=== PATIENT | female | born 1980 | race Caucasian/White ===

== ENCOUNTER 2017-06-12 20:57 | Inpatient (IN) | payer MEDICAID ==
[~2017-06-12] VITALS: Ht 170.2 cm; Wt 97.6 kg
[2017-06-12] MEDS ORDERED: METF500T4 (21:11)
[2017-06-12] MEDS ORDERED: ondansetron/PF 4mg/2ml inj IV ONE (21:15)
[2017-06-12] MEDS ORDERED: HYDROmorphone 1 mg/ml syringe IV PRN (21:15)
[2017-06-12] MEDS ORDERED: normal saline 1000ML IV soln IVB ONE (21:15)
[2017-06-12 21:47] LABS: BASOPHILS % (AUTO) 0.5 % (0-1); EOSINOPHILS # (AUTO) 0.1 X10'3 (0-0.9); EOSINOPHILS % (AUTO) 1.7 % (0-6); HEMATOCRIT 43.4 % (35.0-45.0); HEMOGLOBIN 14.5 g/dl (12.0-16.0); LYMPHOCYTES # (AUTO) 2.3 X10'3 (1.1-4.8); LYMPHOCYTES % (AUTO) 31.6 % (21-51); MEAN CORPUSCULAR HEMOGLOBIN 29.9 PG (27.0-31.0); MEAN CORPUSCULAR HGB CONC 33.4 % (33.0-36.5); MEAN CORPUSCULAR VOLUME 89.6 FL (78-98); MEAN PLATELET VOLUME 10.1 FL (7.4-10.4); MONOCYTES # (AUTO) 0.5 X10'3 (0-0.9); MONOCYTES % (AUTO) 6.5 % (2-12); NEUTROPHILS # (AUTO) 4.4 X10'3 (1.8-7.7); NEUTROPHILS % (AUTO) 59.7 % (42-75); PLATELET COUNT 282 X10'3 (140-440); RED BLOOD COUNT 4.84 X10'6 (4.20-5.60); RED CELL DISTRIBUTION WIDTH 15.1 % (11.5-14.5); WHITE BLOOD COUNT 7.4 X10'3 (4.5-11.0)
[2017-06-12 22:02] LABS: CLARITY,URINE CLEAR (Clear); COLOR,URINE YELLOW (Yellow); GLUCOSE, URINE NEGATIVE (Neg); KETONES,URINE NEGATIVE (Neg); LEUKOCYTE ESTERASE ,URINE NEGATIVE (Neg); NITRITES, URINE NEGATIVE (Neg); OCCULT BLOOD,URINE TRACE-INTACT (Neg); PROTEIN,URINE NEGATIVE (Neg); UROBILINOGEN,URINE 0.2 E.U/dL (0.2-1.0)
[2017-06-12 22:06] LABS: ALANINE AMINOTRANSFERASE 237 U/L (12-78); ALBUMIN 3.9 G/DL (3.4-5.0); ALKALINE PHOSPHATASE 291 IU/L (46-116); ANION GAP 10 (8-16); ASPARTATE AMINO TRANSFERASE 199 U/L (10-37); BILIRUBIN,TOTAL 2.8 MG/DL (0.1-1.0); BLOOD UREA NITROGEN 4 MG/DL (7-18); CALCIUM 9.8 MG/DL (8.5-10.1); CHLORIDE 106 MMOL/L (99-107); GLUCOSE 138 MG/DL (70-104); LIPASE 135 U/L (73-393); POTASSIUM 3.6 MMOL/L (3.5-5.1); SODIUM 145 MMOL/L (135-145); TOTAL PROTEIN 7.7 G/DL (6.4-8.2); eGFR > 90 ML/MIN
[2017-06-12 22:17] LABS: HCG SERUM QL NEGATIVE
[2017-06-12 22:18] LABS: UA COLLECTION TYPE CLN CATCH MIDSTREAM
[2017-06-12 22:19] LABS: BACTERIA,URINE FEW /HPF (Neg); RBC,URINE 0-2 /HPF (0-2); SQUAMOUS EPITHELIAL CELL,UR FEW /LPF (FEW); WBC,URINE 0-4 /HPF (0-4)
[2017-06-13] MEDS ORDERED: HYDROmorphone 1 mg/ml syringe IV PRN (01:00)
[2017-06-13] MEDS ORDERED: mag hydrox/Alum hydrox/simeth 30ml oral suspension PO PRN (01:00)
[2017-06-13] MEDS ORDERED: ondansetron/PF 4mg/2ml inj IV PRN (01:00)
[2017-06-13] MEDS ORDERED: magnesium Cl slow-release 64mg tablet PO PRN (01:00)
[2017-06-13] MEDS ORDERED: magnesium 2GM in 50ml NS 50 ML IV PRN (01:00)
[2017-06-13] MEDS ORDERED: potassium Cl 20 mEq SR tablet PO PRN ×2 (01:00)
[2017-06-13] MEDS ORDERED: acetaminophen 325mg tablet PO PRN (01:00)
[2017-06-13] MEDS ORDERED: magnesium hydroxide 30ml (MOM) UD suspension PO PRN (01:00)
[2017-06-13] MEDS ORDERED: potassium Cl 40MEQ/NS 500ml 500 ML IV PRN ×2 (01:00)
[2017-06-13] MEDS ORDERED: magnesium 4gm in 100ml NS 100 ML IV PRN (01:00)
[2017-06-13 01:30] LABS: HEMOGLOBIN A1C 6.3 % (4.5-6.2)
[2017-06-13] MEDS: normal saline 1000ml 1,000 ML IV SCH ×4 (02:13→23:59)
[2017-06-13 03:30] VITALS: BP 104/65
[2017-06-13 08:00] VITALS: BP 109/67
[2017-06-13] MEDS: K and/or MAG REPLACEMENT MC SCH (08:00)
[2017-06-13] MEDS: HYDROmorphone 1 mg/ml syringe IV PRN (09:47)
[2017-06-13 11:37] VITALS: BP 114/67
[2017-06-13 18:30] VITALS: BP 113/70
[2017-06-13] MEDS ORDERED: HYDROmorphone inj. 0.5 MG/0.5 ML DISP.SYRIN ONE (19:24)
[2017-06-13] MEDS ORDERED: temazepam 15mg capsule PO PRN (21:00)
[2017-06-14] VITALS: BP 109/67
[2017-06-14 05:38] LABS: BASOPHILS % (AUTO) 0.4 % (0-1); EOSINOPHILS # (AUTO) 0.1 X10'3 (0-0.9); HEMATOCRIT 38.5 % (35.0-45.0); HEMOGLOBIN 12.9 g/dl (12.0-16.0); LYMPHOCYTES # (AUTO) 1.5 X10'3 (1.1-4.8); LYMPHOCYTES % (AUTO) 22.9 % (21-51); MEAN CORPUSCULAR HGB CONC 33.5 % (33.0-36.5); MEAN CORPUSCULAR VOLUME 89.6 FL (78-98); MEAN PLATELET VOLUME 10.5 FL (7.4-10.4); MONOCYTES # (AUTO) 0.3 X10'3 (0-0.9); MONOCYTES % (AUTO) 5.4 % (2-12); NEUTROPHILS # (AUTO) 4.4 X10'3 (1.8-7.7); NEUTROPHILS % (AUTO) 69.3 % (42-75); PLATELET COUNT 213 X10'3 (140-440); WHITE BLOOD COUNT 6.4 X10'3 (4.5-11.0)
[2017-06-14 06:01] LABS: ALANINE AMINOTRANSFERASE 133 U/L (12-78); ALBUMIN 3.1 G/DL (3.4-5.0); ALBUMIN/GLOBULIN RATIO 0.9 (1.1-1.5); ALKALINE PHOSPHATASE 224 IU/L (46-116); ANION GAP 12 (8-16); ASPARTATE AMINO TRANSFERASE 62 U/L (10-37); BILIRUBIN,TOTAL 1.1 MG/DL (0.1-1.0); BLOOD UREA NITROGEN 6 MG/DL (7-18); CALCIUM 8.5 MG/DL (8.5-10.1); CHLORIDE 108 MMOL/L (99-107); GLUCOSE 125 MG/DL (70-104); MAGNESIUM 1.5 MG/DL (1.5-2.4); POTASSIUM 3.7 MMOL/L (3.5-5.1); SODIUM 143 MMOL/L (135-145); TOTAL CARBON DIOXIDE 22.8 MMOL/L (24-32); TOTAL PROTEIN 6.4 G/DL (6.4-8.2); eGFR > 90 ML/MIN
[2017-06-14] MEDS: K and/or MAG REPLACEMENT MC SCH (06:57)
[2017-06-14] MEDS ORDERED: HYDROmorphone inj. 0.5 MG/0.5 ML DISP.SYRIN ONE ×2 (07:07→16:21)
[2017-06-14] MEDS ORDERED: FLU VACC QS2017-18 36MOS UP/PF 60 MCG/0.5 ML SYRINGE IMVAC ONE (10:00)
[2017-06-14 11:35] VITALS: BP 106/64
[2017-06-14] MEDS: normal saline 1000ml 1,000 ML IV SCH (16:59)
[2017-06-14 18:00] VITALS: BP 110/66
[2017-06-14 23:00] VITALS: BP 109/68
[2017-06-15] VITALS (11 sets, daily range): BP systolic 101–138; BP diastolic 62–87
[2017-06-15] MEDS: normal saline 1000ml 1,000 ML IV SCH ×3 (03:32→22:59)
[2017-06-15 05:25] LABS: BASOPHILS % (AUTO) 0.4 % (0-1); EOSINOPHILS # (AUTO) 0.1 X10'3 (0-0.9); EOSINOPHILS % (AUTO) 2.6 % (0-6); HEMATOCRIT 37.3 % (35.0-45.0); HEMOGLOBIN 12.5 g/dl (12.0-16.0); LYMPHOCYTES % (AUTO) 39.2 % (21-51); MEAN CORPUSCULAR HGB CONC 33.6 % (33.0-36.5); MEAN CORPUSCULAR VOLUME 89.4 FL (78-98); MEAN PLATELET VOLUME 10.4 FL (7.4-10.4); MONOCYTES # (AUTO) 0.4 X10'3 (0-0.9); MONOCYTES % (AUTO) 7.2 % (2-12); NEUTROPHILS # (AUTO) 2.6 X10'3 (1.8-7.7); NEUTROPHILS % (AUTO) 50.6 % (42-75); PLATELET COUNT 230 X10'3 (140-440); RED BLOOD COUNT 4.18 X10'6 (4.20-5.60); RED CELL DISTRIBUTION WIDTH 14.6 % (11.5-14.5); WHITE BLOOD COUNT 5.2 X10'3 (4.5-11.0)
[2017-06-15 05:49] LABS: ALANINE AMINOTRANSFERASE 102 U/L (12-78); ALBUMIN/GLOBULIN RATIO 0.9 (1.1-1.5); ALKALINE PHOSPHATASE 211 IU/L (46-116); ANION GAP 11 (8-16); ASPARTATE AMINO TRANSFERASE 50 U/L (10-37); BLOOD UREA NITROGEN 4 MG/DL (7-18); BUN/CREATININE RATIO 6.7 (6.6-38.0); CALCIUM 8.8 MG/DL (8.5-10.1); CHLORIDE 109 MMOL/L (99-107); GLUCOSE 111 MG/DL (70-104); MAGNESIUM 1.6 MG/DL (1.5-2.4); POTASSIUM 3.7 MMOL/L (3.5-5.1); SODIUM 144 MMOL/L (135-145); TOTAL CARBON DIOXIDE 24.5 MMOL/L (24-32); TOTAL PROTEIN 6.2 G/DL (6.4-8.2); eGFR > 90 ML/MIN
[2017-06-15 06:16] LABS: LARGE PLATELETS FEW; PLATELET ESTIMATE NORMAL
[2017-06-15] MEDS: K and/or MAG REPLACEMENT MC SCH (08:00)
[2017-06-15] MEDS ORDERED: normal saline 1000ml 1,000 ML IV SCH (13:13)
[2017-06-15] MEDS ORDERED: fentaNYL/PF 50MCG/1 ML 2ML syringe IV PRN ×2 (13:15→14:10)
[2017-06-15] MEDS ORDERED: meperidine/PF 100mg/ml syringe IV PRN (13:15)
[2017-06-15] MEDS ORDERED: LIDOcaine Viscous 15ml cup PO ONE (13:15)
[2017-06-15] MEDS ORDERED: glucagon, human recombinant 1mg kit IV PRN (13:15)
[2017-06-15] MEDS ORDERED: simethicone 40mg/0.6ml oral drops 30ml MC ONE (13:15)
[2017-06-15] MEDS ORDERED: iohexol 300 MG/1 ML 50ml polymer IV ONE (13:15)
[2017-06-15] MEDS ORDERED: diphenhydrAMINE 50 mg/ml inj IV ONE (13:15)
[2017-06-15] MEDS ORDERED: MIDAZolam 5mg/5ml vial IV PRN ×2 (13:15→14:10)
[2017-06-15] MEDS ORDERED: ringers solution, lacted 1,000 ML IV ONE (13:15)
[2017-06-15] MEDS ORDERED: levoFLOXACIN-Levaquin 500mg/D5 100 ML IV ONE (14:10)
[2017-06-15] MEDS ORDERED: diphenhydrAMINE 50 mg/ml inj ONE (14:47)
[2017-06-15] MEDS ORDERED: meperidine/PF 100mg/ml syringe ONE (14:47)
[2017-06-15] MEDS ORDERED: fentaNYL/PF 50MCG/1 ML 2ML syringe ONE (14:47)
[2017-06-15] MEDS ORDERED: MIDAZolam 1mg/ml 10ml vial ONE (14:47)
[2017-06-15] MEDS ORDERED: glucagon, human recombinant 1mg kit ONE (14:48)
[2017-06-15] MEDS ORDERED: levoFLOXACIN-Levaquin 500mg/D5 0 ML IV ONE (14:48)
[2017-06-15] MEDS ORDERED: iohexol 300 MG/1 ML 50ml polymer ONE (14:48)
[2017-06-15] MEDS ORDERED: LIDOcaine Viscous 15ml cup ONE ×2 (14:48→17:48)
[2017-06-16] VITALS (20 sets, daily range): BP systolic 67–124; BP diastolic 49–84
[2017-06-16 05:38] LABS: BASOPHILS % (AUTO) 0.5 % (0-1); EOSINOPHILS # (AUTO) 0.1 X10'3 (0-0.9); EOSINOPHILS % (AUTO) 2.4 % (0-6); HEMOGLOBIN 12.4 g/dl (12.0-16.0); LYMPHOCYTES # (AUTO) 1.8 X10'3 (1.1-4.8); MEAN CORPUSCULAR HGB CONC 33.4 % (33.0-36.5); MEAN CORPUSCULAR VOLUME 89.7 FL (78-98); MEAN PLATELET VOLUME 10.4 FL (7.4-10.4); MONOCYTES # (AUTO) 0.5 X10'3 (0-0.9); MONOCYTES % (AUTO) 9.7 % (2-12); NEUTROPHILS # (AUTO) 2.6 X10'3 (1.8-7.7); NEUTROPHILS % (AUTO) 51.4 % (42-75); PLATELET COUNT 215 X10'3 (140-440); RED BLOOD COUNT 4.13 X10'6 (4.20-5.60); RED CELL DISTRIBUTION WIDTH 14.3 % (11.5-14.5)
[2017-06-16 06:14] LABS: ALANINE AMINOTRANSFERASE 87 U/L (12-78); ALBUMIN 2.9 G/DL (3.4-5.0); ALKALINE PHOSPHATASE 248 IU/L (46-116); ANION GAP 8 (8-16); ASPARTATE AMINO TRANSFERASE 75 U/L (10-37); BILIRUBIN,TOTAL 1.2 MG/DL (0.1-1.0); BLOOD UREA NITROGEN 4 MG/DL (7-18); BUN/CREATININE RATIO 6.7 (6.6-38.0); CALCIUM 8.5 MG/DL (8.5-10.1); CHLORIDE 110 MMOL/L (99-107); GLUCOSE 104 MG/DL (70-104); MAGNESIUM 1.6 MG/DL (1.5-2.4); POTASSIUM 3.5 MMOL/L (3.5-5.1); SODIUM 145 MMOL/L (135-145); TOTAL PROTEIN 5.9 G/DL (6.4-8.2); eGFR > 90 ML/MIN
[2017-06-16] MEDS: K and/or MAG REPLACEMENT MC SCH (07:47)
[2017-06-16 09:10] LABS: PARTIAL THROMBOPLASTIN TIME 26 SECONDS (22-32)
[2017-06-16] MEDS: normal saline 1000ml 1,000 ML IV SCH ×2 (09:12→17:29)
[2017-06-16] MEDS ORDERED: ceFOXitin 2 GM ADDvantage bag 100 ML IV ONE (14:05)
[2017-06-16] MEDS ORDERED: ceFAZolin 1000mg inj ONE (14:13)
[2017-06-16] MEDS ORDERED: BUPIVAcaine/PF 2.5 mg/ml (0.25%) 30ml vial ONE (14:14)
[2017-06-16] MEDS ORDERED: sevoflurane 250ml liquid IH ONE (14:42)
[2017-06-16] MEDS ORDERED: midazolam 2 mg/2 ml injection ONE (14:52)
[2017-06-16] MEDS ORDERED: propofol inj 20 ML IV ONE (14:52)
[2017-06-16] MEDS ORDERED: ondansetron/PF 4mg/2ml inj ONE (14:52)
[2017-06-16] MEDS ORDERED: LIDOcaine 2% (20mg/ml) 5ml vial ONE (14:52)
[2017-06-16] MEDS ORDERED: fentaNYL/PF 50MCG/1 ML 2ML syringe ONE (14:52)
[2017-06-16] MEDS ORDERED: rocuronium 10mg/ml inj IV ONE ×2 (14:52→15:39)
[2017-06-16] MEDS ORDERED: glycopyrrolate 0.2mg/ml inj ONE (14:53)
[2017-06-16] MEDS ORDERED: neostigmine methylsulfate 1 MG/ML 10ml vial ONE (14:53)
[2017-06-16] MEDS ORDERED: ringers solution, lacted 1,000 ML IV SCH (15:16)
[2017-06-16] MEDS ORDERED: hydrALAZINE 20mg/ml inj. IV PRN (15:20)
[2017-06-16] MEDS ORDERED: labetalol 5mg/ml 20ml inj. IV PRN (15:20)
[2017-06-16] MEDS ORDERED: ondansetron/PF 4mg/2ml inj IV PRN ×2 (15:20→16:00)
[2017-06-16] MEDS ORDERED: morphine 2 MG/ML inj. syringe IV PRN ×2 (15:20)
[2017-06-16] MEDS ORDERED: fentaNYL/PF 50MCG/1 ML 2ML syringe IV PRN (15:20)
[2017-06-16] MEDS ORDERED: labetalol 5mg/ml 20ml inj. IV ONE (15:50)
[2017-06-16] MEDS ORDERED: ketorolac trometh. 30mg/ml inj. ONE (15:51)
[2017-06-16] MEDS: fentaNYL/PF 50MCG/1 ML 2ML syringe IV PRN ×4 (16:13→16:49)
[2017-06-16] MEDS ORDERED: normal saline 1000ml 1,000 ML IV ONE (18:30)
[2017-06-16] MEDS: ketorolac trometh. 30mg/ml inj. IV PRN (19:15)
[2017-06-16] MEDS ORDERED: naloxone 0.4 mg/ml inj ONE (20:47)
[2017-06-16] MEDS ORDERED: naloxone 0.4 mg/ml inj IV ONE (20:50)
[2017-06-16 20:58] LABS: BASOPHILS % (AUTO) 0.1 % (0-1); EOSINOPHILS # (AUTO) 0.1 X10'3 (0-0.9); HEMATOCRIT 27.3 % (35.0-45.0); HEMOGLOBIN 9.4 g/dl (12.0-16.0); LYMPHOCYTES # (AUTO) 0.9 X10'3 (1.1-4.8); LYMPHOCYTES % (AUTO) 6.6 % (21-51); MEAN CORPUSCULAR HEMOGLOBIN 30.5 PG (27.0-31.0); MEAN CORPUSCULAR HGB CONC 34.5 % (33.0-36.5); MEAN CORPUSCULAR VOLUME 88.3 FL (78-98); MEAN PLATELET VOLUME 9.7 FL (7.4-10.4); MONOCYTES # (AUTO) 0.1 X10'3 (0-0.9); MONOCYTES % (AUTO) 0.7 % (2-12); NEUTROPHILS # (AUTO) 12.7 X10'3 (1.8-7.7); NEUTROPHILS % (AUTO) 91.6 % (42-75); PLATELET COUNT 273 X10'3 (140-440); RED CELL DISTRIBUTION WIDTH 14.5 % (11.5-14.5); WHITE BLOOD COUNT 13.9 X10'3 (4.5-11.0)
[2017-06-16 21:11] LABS: ALBUMIN 2.4 G/DL (3.4-5.0); ANION GAP 11 (8-16); BLOOD UREA NITROGEN 8 MG/DL (7-18); BUN/CREATININE RATIO 11.4 (6.6-38.0); CALCIUM 7.7 MG/DL (8.5-10.1); CHLORIDE 112 MMOL/L (99-107); GLUCOSE 216 MG/DL (70-104); MAGNESIUM 1.2 MG/DL (1.5-2.4); PHOSPHORUS 4.4 MG/DL (2.3-4.5); POTASSIUM 3.9 MMOL/L (3.5-5.1); SODIUM 145 MMOL/L (135-145); TOTAL CARBON DIOXIDE 21.6 MMOL/L (24-32); eGFR > 90 ML/MIN
[2017-06-16] MEDS ORDERED: albumin (Human) 5% 250 ML IV solution IV STA (21:16)
[2017-06-16 21:36] LABS: ABG BASE EXCESS -7.1 mmol/L (-2.0-3.0); ABG OXYGEN SATURATION 95.5 % (95-98); ABG PCO2 (T) 28.8 mmHg (32.0-45.0); ABG PH (T) 7.388 (7.350-7.450); ABG PO2 (T) 80.1 mmHg (83-108); FCOHb 0.3 % (0.5-1.5); FLOW 2 L/min; FMetHb 0.1 % (0.3-1.12); FO2Hb 95.1 % (94-100); PATIENT TEMPERATURE 36.6; RESPIRATORY RATE (OBSERVED) 18 b/min; TOTAL HEMOGLOBIN 9.7 G/dl (12.0-16.0)
[2017-06-17] VITALS (26 sets, daily range): BP systolic 99–113; BP diastolic 50–64
[2017-06-17] MEDS: ketorolac trometh. 30mg/ml inj. IV PRN (01:08)
[2017-06-17 02:21] LABS: BASOPHILS % (AUTO) 0.2 % (0-1); EOSINOPHILS % (AUTO) 0 % (0-6); HEMATOCRIT 23.5 % (35.0-45.0); HEMOGLOBIN 8.2 g/dl (12.0-16.0); LYMPHOCYTES # (AUTO) 0.6 X10'3 (1.1-4.8); LYMPHOCYTES % (AUTO) 6.1 % (21-51); MEAN CORPUSCULAR HEMOGLOBIN 30.6 PG (27.0-31.0); MEAN CORPUSCULAR HGB CONC 34.8 % (33.0-36.5); MEAN CORPUSCULAR VOLUME 87.8 FL (78-98); MEAN PLATELET VOLUME 9.9 FL (7.4-10.4); MONOCYTES # (AUTO) 0.3 X10'3 (0-0.9); MONOCYTES % (AUTO) 3.2 % (2-12); NEUTROPHILS # (AUTO) 9.2 X10'3 (1.8-7.7); NEUTROPHILS % (AUTO) 90.5 % (42-75); PLATELET COUNT 238 X10'3 (140-440); RED BLOOD COUNT 2.67 X10'6 (4.20-5.60); RED CELL DISTRIBUTION WIDTH 14.8 % (11.5-14.5); WHITE BLOOD COUNT 10.2 X10'3 (4.5-11.0)
[2017-06-17] MEDS ORDERED: midazolam 2 mg/2 ml injection ONE (02:23)
[2017-06-17] MEDS ORDERED: fentaNYL/PF 50MCG/1 ML 2ML syringe ONE ×3 (02:23→03:58)
[2017-06-17] MEDS ORDERED: clindamycin phosphate 150mg/ml inj. ONE (02:25)
[2017-06-17] MEDS ORDERED: gentamicin 40 MG/1 ML inj ONE (02:25)
[2017-06-17] MEDS ORDERED: LIDOcaine 2% (20mg/ml) 5ml vial ONE (02:26)
[2017-06-17] MEDS ORDERED: etomidate 2mg/ml inj. ONE (02:26)
[2017-06-17] MEDS ORDERED: phenylephrine 10mg/ml inj IV ONE (02:33)
[2017-06-17] MEDS ORDERED: sevoflurane 250ml liquid IH ONE (02:46)
[2017-06-17] MEDS ORDERED: insulin regular, human vial - multi-dose ONE (02:47)
[2017-06-17] MEDS ORDERED: BUPIVAcaine/PF 2.5 mg/ml (0.25%) 30ml vial ONE (03:04)
[2017-06-17] MEDS ORDERED: ringers solution, lacted 1,000 ML IV SCH (04:34)
[2017-06-17] MEDS ORDERED: proCHLORperazine 10 MG/2 ml inj IV PRN (04:35)
[2017-06-17] MEDS ORDERED: morphine 2 MG/ML inj. syringe IV PRN ×2 (04:35)
[2017-06-17] MEDS ORDERED: meperidine/PF 25mg/ml syringe IV PRN ×3 (04:35)
[2017-06-17] MEDS ORDERED: ondansetron/PF 4mg/2ml inj IV PRN (04:35)
[2017-06-17 04:41] LABS: ISTAT ANION GAP 17 (8-12); ISTAT BUN 6 mg/dL (6-19); ISTAT CL 108 mmol/L (99-107); ISTAT CREATININE 0.5 mg/dL (0.6-1.1); ISTAT GLUCOSE 152 mg/dL (70-104); ISTAT HGB 7.1 g/dl (12.0-16.0); ISTAT Hct 21 %PCV (35-48); ISTAT IONIZED CALCIUM 1.17 mmol/L (1.03-1.32); ISTAT K 3.5 mmol/L (3.5-5.1); ISTAT NA 144 mmol/L (135-145); ISTAT TOTAL CO2 19 mmol/L (24-32); ISTAT eGFR > 90 ML/MIN
[2017-06-17] MEDS ORDERED: ceFOXitin 1000 MG inj ONE (04:43)
[2017-06-17] MEDS: normal saline 1000ml 1,000 ML IV SCH ×2 (07:31→07:37)
[2017-06-17] MEDS ORDERED: HYDROmorphone inj. 0.5 MG/0.5 ML DISP.SYRIN ONE ×3 (07:33→18:44)
[2017-06-17] MEDS: ceFOXitin 2 GM ADDvantage bag 100 ML IV SCH ×3 (07:37→20:15)
[2017-06-17] MEDS: metoclopramide 5 mg/ml inj IV SCH ×3 (07:37→20:15)
[2017-06-17] MEDS: K and/or MAG REPLACEMENT MC SCH (08:00)
[2017-06-17 13:58] LABS: HEMATOCRIT 27.9 % (35.0-45.0); HEMOGLOBIN 9.9 g/dl (12.0-16.0); MEAN CORPUSCULAR HGB CONC 35.3 % (33.0-36.5); MEAN PLATELET VOLUME 10.1 FL (7.4-10.4); PLATELET COUNT 245 X10'3 (140-440); RED BLOOD COUNT 3.18 X10'6 (4.20-5.60); RED CELL DISTRIBUTION WIDTH 14.8 % (11.5-14.5); WHITE BLOOD COUNT 11.4 X10'3 (4.5-11.0)
[2017-06-17] MEDS: HYDROmorphone 1 mg/ml syringe IV PRN (18:46)
[2017-06-17] MEDS: HYDROcodone/acetaminophen 10/325mg tab PO PRN (20:51)
[2017-06-18] MEDS: morphine 2 MG/ML inj. syringe IV PRN ×5 (01:00→19:56)
[2017-06-18] MEDS: metoclopramide 5 mg/ml inj IV SCH ×4 (02:46→19:52)
[2017-06-18] MEDS: HYDROcodone/acetaminophen 10/325mg tab PO PRN ×3 (02:46→17:49)
[2017-06-18] MEDS: normal saline 1000ml 1,000 ML IV SCH ×3 (02:46→20:13)
[2017-06-18 06:05] LABS: BASOPHILS % (AUTO) 0.3 % (0-1); EOSINOPHILS # (AUTO) 0.1 X10'3 (0-0.9); EOSINOPHILS % (AUTO) 1.2 % (0-6); HEMATOCRIT 22.5 % (35.0-45.0); HEMOGLOBIN 7.9 g/dl (12.0-16.0); LYMPHOCYTES # (AUTO) 2.2 X10'3 (1.1-4.8); LYMPHOCYTES % (AUTO) 33.8 % (21-51); MEAN CORPUSCULAR HEMOGLOBIN 30.9 PG (27.0-31.0); MEAN CORPUSCULAR HGB CONC 34.9 % (33.0-36.5); MEAN CORPUSCULAR VOLUME 88.6 FL (78-98); MEAN PLATELET VOLUME 10.2 FL (7.4-10.4); MONOCYTES # (AUTO) 0.5 X10'3 (0-0.9); MONOCYTES % (AUTO) 6.9 % (2-12); NEUTROPHILS # (AUTO) 3.8 X10'3 (1.8-7.7); NEUTROPHILS % (AUTO) 57.8 % (42-75); PLATELET COUNT 159 X10'3 (140-440); RED BLOOD COUNT 2.54 X10'6 (4.20-5.60); RED CELL DISTRIBUTION WIDTH 15.5 % (11.5-14.5); WHITE BLOOD COUNT 6.6 X10'3 (4.5-11.0)
[2017-06-18 06:31] LABS: ALANINE AMINOTRANSFERASE 39 U/L (12-78); ALBUMIN 2.6 G/DL (3.4-5.0); ALBUMIN/GLOBULIN RATIO 1.1 (1.1-1.5); ALKALINE PHOSPHATASE 108 IU/L (46-116); ANION GAP 7 (8-16); ASPARTATE AMINO TRANSFERASE 23 U/L (10-37); BILIRUBIN,TOTAL 0.7 MG/DL (0.1-1.0); BLOOD UREA NITROGEN 5 MG/DL (7-18); CALCIUM 7.9 MG/DL (8.5-10.1); CHLORIDE 113 MMOL/L (99-107); GLUCOSE 113 MG/DL (70-104); MAGNESIUM 1.4 MG/DL (1.5-2.4); SODIUM 145 MMOL/L (135-145); TOTAL CARBON DIOXIDE 24.8 MMOL/L (24-32); TOTAL PROTEIN 4.9 G/DL (6.4-8.2); eGFR > 90 ML/MIN
[2017-06-18 07:04] LABS: POTASSIUM 2.8 MMOL/L (3.5-5.1)
[2017-06-18] MEDS: LACTOBACILLUS RHAMNOSUS GG 15 billion unit sprinkle caps PO SCH (07:08)
[2017-06-18] MEDS ORDERED: potassium Cl 20 mEq SR tablet PO PRN ×2 (07:25)
[2017-06-18] MEDS ORDERED: magnesium 2GM in 50ml NS 50 ML IV PRN (07:25)
[2017-06-18] MEDS ORDERED: potassium Cl 40MEQ/NS 500ml 500 ML IV PRN ×2 (07:25)
[2017-06-18] MEDS ORDERED: magnesium 4gm in 100ml NS 100 ML IV PRN (07:25)
[2017-06-18 07:35] VITALS: BP 128/82
[2017-06-18] MEDS: K and/or MAG REPLACEMENT MC SCH ×2 (08:00)
[2017-06-18] MEDS: LIDOcaine 1% 30ml vial 5 ML in potassium Cl 40MEQ/NS 500ml 500 ML IV PRN ×2 (09:37→14:29)
[2017-06-18] MEDS: magnesium Cl slow-release 64mg tablet PO PRN ×2 (10:18→21:06)
[2017-06-18 11:51] VITALS: BP 127/73
[2017-06-18 12:40] VITALS: BP 121/72
[2017-06-18 12:55] VITALS: BP 125/72
[2017-06-18] MEDS ORDERED: levoFLOXACIN-Levaquin 500mg/D5 100 ML IV SCH ×2 (13:10→20:00)
[2017-06-18] MEDS ORDERED: metroNIDAZOLE-Flagyl 500mg/NS 100 ML IV SCH (13:11)
[2017-06-18 13:40] VITALS: BP 118/69
[2017-06-18] MEDS: metroNIDAZOLE-Flagyl 500mg/NS 100 ML IV SCH (19:51)
[2017-06-18 20:00] VITALS: BP 124/80
[2017-06-19] VITALS: BP 127/77
[2017-06-19] MEDS: morphine 2 MG/ML inj. syringe IV PRN ×2 (00:17→08:06)
[2017-06-19] MEDS: metoclopramide 5 mg/ml inj IV SCH ×3 (02:00→14:00)
[2017-06-19] MEDS: HYDROcodone/acetaminophen 10/325mg tab PO PRN (04:40)
[2017-06-19 08:00] VITALS: BP 127/78
[2017-06-19] MEDS ORDERED: ferrous sulfate ER tablet 140 MG TABLET.ER PO SCH (08:00)
[2017-06-19] MEDS: K and/or MAG REPLACEMENT MC SCH (08:00)
[2017-06-19] MEDS: LACTOBACILLUS RHAMNOSUS GG 15 billion unit sprinkle caps PO SCH (08:06)
[2017-06-19] MEDS: metroNIDAZOLE-Flagyl 500mg/NS 100 ML IV SCH (08:06)
[2017-06-19 09:27] LABS: BASOPHILS % (AUTO) 0.3 % (0-1); EOSINOPHILS # (AUTO) 0.1 X10'3 (0-0.9); HEMATOCRIT 28.3 % (35.0-45.0); HEMOGLOBIN 9.7 g/dl (12.0-16.0); LYMPHOCYTES # (AUTO) 2.2 X10'3 (1.1-4.8); LYMPHOCYTES % (AUTO) 31.9 % (21-51); MEAN CORPUSCULAR HEMOGLOBIN 31.2 PG (27.0-31.0); MEAN CORPUSCULAR HGB CONC 34.5 % (33.0-36.5); MEAN CORPUSCULAR VOLUME 90.6 FL (78-98); MEAN PLATELET VOLUME 10.9 FL (7.4-10.4); MONOCYTES # (AUTO) 0.4 X10'3 (0-0.9); MONOCYTES % (AUTO) 5.2 % (2-12); NEUTROPHILS # (AUTO) 4.2 X10'3 (1.8-7.7); NEUTROPHILS % (AUTO) 60.6 % (42-75); PLATELET COUNT 203 X10'3 (140-440); RED BLOOD COUNT 3.12 X10'6 (4.20-5.60); RED CELL DISTRIBUTION WIDTH 15.6 % (11.5-14.5)
[2017-06-19 09:42] LABS: LARGE PLATELETS FEW; PLATELET ESTIMATE NORMAL
[2017-06-19] MEDS ORDERED: oxyCODONE/APAP 10/325mg tablet PO PRN (10:20)
[2017-06-19 11:00] VITALS: BP 119/76
[2017-06-19] MEDS ORDERED: OXYC-150 PO (15:25)
[2017-07-07] MEDS ORDERED: BACDS PO (16:28)
== END 2017-06-19 17:40 | disposition home or self-care (01) | DRG 263 ==
LOC: ER 20:58 → ED HOLD 06-13 01:02 → SUR 3N 06-13 03:00 → PACU 06-16 14:22 → SUR 3N 06-16 17:24
PROVIDERS: ADMIT Internal Medicine; ATTEND Family Medicine
PROC: 0FC98ZZ Extirpation of Matter from Common Bile Duct, Via Natural or Artificial Opening Endoscopic (ICD-10-PCS; 2017-06-15)
PROC: 0F798ZZ Dilation of Common Bile Duct, Via Natural or Artificial Opening Endoscopic (ICD-10-PCS; 2017-06-15)
PROC: BF131ZZ Fluoroscopy of Gallbladder and Bile Ducts using Low Osmolar Contrast (ICD-10-PCS; 2017-06-15)
PROC: 0FT44ZZ Resection of Gallbladder, Percutaneous Endoscopic Approach (ICD-10-PCS; principal; 2017-06-16 14:42)
PROC: 0WCG4ZZ Extirpation of Matter from Peritoneal Cavity, Percutaneous Endoscopic Approach (ICD-10-PCS; 2017-06-17)
PROC: 30233N1 Transfusion of Nonautologous Red Blood Cells into Peripheral Vein, Percutaneous Approach (ICD-10-PCS; 2017-06-17)
PROC: 0W3P4ZZ Control Bleeding in Gastrointestinal Tract, Percutaneous Endoscopic Approach (ICD-10-PCS; 2017-06-17)
DX: K80.63 Calculus of gallbladder and bile duct with acute cholecystitis with obstruction (principal); K66.1 Hemoperitoneum; D62 Acute posthemorrhagic anemia; E11.9 Type 2 diabetes mellitus without complications; K91.840 Postprocedural hemorrhage of a digestive system organ or structure following a digestive system procedure; K57.30 Diverticulosis of large intestine without perforation or abscess without bleeding; K82.8 Other specified diseases of gallbladder; F17.210 Nicotine dependence, cigarettes, uncomplicated; Z90.49 Acquired absence of other specified parts of digestive tract; Z79.84 Long term (current) use of oral hypoglycemic drugs; Y83.8 Other surgical procedures as the cause of abnormal reaction of the patient, or of later complication, without mention of misadventure at the time of the procedure; Y92.239 Unspecified place in hospital as the place of occurrence of the external cause
CPT/HCPCS: 36415; 36600; 74150; 74176; 74181; 80047; 80048; 80053; 81001; 82803; 82948; 83036; 83605; 83690; 83735; 84100; 84132; 84703; 85018; 85025; 85027; 85610; 85730; 86885; 86900; 86901; 86920; 87070; 96374; 96375; 99285; A4315; A6212; A6213; A6251; A6449; A7000; G0500; J0690; J0694; J1170; J1200; J1580; J1610; J1815; J1885; J1956; J2001; J2175; J2250; J2270; J2310; J2370; J2405; J2704; J2710; J2765; J3010; J3480; J3490; J7030; J7120; P9016; P9045; Q9967

== ENCOUNTER 2022-06-18 15:03 | Emergency (ER) | payer MEDICAID, OTHER ==
[~2022-06-18] VITALS: Ht 170.2 cm; Wt 90.0 kg
[~2022-06-18 15:03] MED LIST: METF-436; OXYC-150 PO
[2022-06-18 15:10] VITALS: BP 143/81
== END 2022-06-18 16:49 | disposition home or self-care (01) ==
LOC: ER 15:05
DX: G56.22 Lesion of ulnar nerve, left upper limb (principal); M25.522 Pain in left elbow; E11.9 Type 2 diabetes mellitus without complications; F17.200 Nicotine dependence, unspecified, uncomplicated; Z98.890 Other specified postprocedural states; Z72.89 Other problems related to lifestyle; Z79.899 Other long term (current) drug therapy
CPT/HCPCS: 73080; 99283

== ENCOUNTER 2025-05-07 11:17 | Emergency (ER) | payer OTHER ==
[~2025-05-07] VITALS: Ht 170.2 cm; Wt 84.4 kg
[2025-05-07 12:27] VITALS: TEMP 98.1
[2025-05-07 12:28] LABS: URINE HCG NEGATIVE (NEG)
--- NOTE | 2025-05-07 12:29 | Physician Documentation ---
History of Present Illness Chief Complaint: Abdominal Pain Stated Complaint: ABD PAIN Time Seen by MD: 12:26 Primary Medical Doctor: Kim clark HPI This is a 45-year-old female with a history of partial colectomy for diverticulitis. She notes that this was more than five years ago. Since Thursday, she has been having left lower quadrant abdominal pain with nausea. No chills or fever. History of cholecystectomy. Medication Reconciliation Allergies: Coded Allergies: No Known Allergies (Unverified , 06/12/17) Scheduled Oxycodone HCl/Acetaminophen (Percocet 10-325 mg Tablet), 1 TAB PO Q8H Scheduled PRN Ondansetron 8mg ODT (Ondansetron Odt), 1 TAB PO TID PRN for nausea/vomiting Miscellaneous Medications Metformin Hcl (Metformin Hcl), (Reported) Past Medical History Past Medical History: Diverticulitis, Diabetes Past Surgical History: colectomy, other Other Past Surgical History: descending colon removal Alcohol Use: Occasionally Drug Use: none Lives In: Home Review of Systems ROS As stated above in the HPI, otherwise all systems are reviewed and negative. Physical Exam Vital Signs: Temperature: 98.4, Source: Temporal, Heart Rate: 73, Respiratory Rate: 16, BP: 132/74, Pulse Oximetry: 100, Weight: 84.400 Oxygen Flow Rate: 0 Physical Exam General: Alert, no apparent distress. HEENT: PERRL, EOMI, no injection, moist mucous membranes. Neck: Full range of motion. Respiratory: Lungs clear, no respiratory distress. Chest: No accessory muscle use. Cardiovascular: Regular rate and rhythm, no murmurs. Gastrointestinal: Soft,TTP LLQ, nondistended. Bowels sounds present. Extremities: Normal range of motion, no deformity. Neurologic: Oriented x4. Psychiatric: Normal mood and affect. Skin: Normal color, warm and dry. No edema, no ecchymosis. Progress Results/Orders Results/Orders Orders - STARLA TYSON MANAGER OF COMPLIANCE * Iv Access / Saline Lock * (05/07/25 12:27) Vital Signs 05/07/25 11:19 Temp 98.4 Pulse 73 Resp 16 B/P (MAP) 132/74 Pulse Ox 100 O2 Flow Rate 0 Laboratory Tests Test 05/07/25 12:11 05/07/25 12:13 CBC Comment Chemistry Comments Urine Comment EKG/XRAY/CT/US/VASC/MRI CT : Impression [facility] [address], [place] - [address] CAT SCAN Patient: ALFA BAIRD Medical Record: [id number] [facility] : 1980, Age: 45 Sex: Female Location: ER Patient Status: [facility] ER Service Date/Time: 05/07/251320 Ordering Physician: STARLA TYSON MANAGER OF COMPLIANCE Exam: CT ABDOMEN PELVIS EXAM: CT CT ABDOMEN PELVIS W/ IV CONTRAST History: LLQ abd pain COMPARISON: None TECHNIQUE: Multidetector spiral CT of the abdomen and pelvis was performed from lung bases to pubic symphysis. Intravenous contrast was administered during this examination. Portal venous imaging was obtained. Axial, coronal and sagittal multiplanar reformats were performed by the technologist on a separate workstation. Radiation Dose : 1. Abdomen/Pelvis: CTDIvol 24 mGy, DLP 1316 mGy*cm. CONTRAST: Type of contrast: Omnipaque Contrast injected: 100 ml FINDINGS: Lung Bases: No acute or significant lung base finding. Normal heart size. No pleural or pericardial effusion. Liver: The liver is normal in size. No focal lesions. Normal hepatic vascular enhancement. Gallbladder and Biliary Tree: Gallbladder is surgically absent. Spleen: Unremarkable Pancreas: The pancreas is normal in appearance without focal lesions or abnormal enhancement. Adrenal Glands: Unremarkable Kidneys: No hydronephrosis. Bladder: Unremarkable Bowel: The stomach is grossly normal in appearance. Small bowel and colon are normal in caliber and distribution. Normal appendix is visualized in the right lower quadrant without findings of appendicitis. Ascites: Absent Lymphadenopathy: No mesenteric, retroperitoneal or periportal lymphadenopathy. Abdominal Wall and Mesentery: Moderate fat containing ventral hernia in the upper abdomen. Vasculature: The visualized abdominal aorta is normal in size and caliber. Abdominal and pelvic vessels demonstrate normal enhancement. Pelvic Organs: Unremarkable Musculoskeletal: No aggressive focal bony lesions, acute fractures or dislocation. IMPRESSION: 1. No acute abdominal or pelvic finding. Radiation optimization: All CT scans at this facility use at least one of these dose optimization techniques: automated exposure control mA and/or kV adjustment per patient size (includes targeted exams where dose is matched to clinical indication) or iterative reconstruction. Electronically Signed by:SHAYY MERAZ MD Date & Time: 05/07/251333 Dictated by: SHAYY MERAZ MD Dictation date and time: 05/07/254 Primary Care Provider: NO PRIMARY CARE PROVIDER cc: STARLA TYSON NP ~ Medical Decision Making Additional information obtaine: old records Findings 06/18/22 was her last visit to this facility for carpal tunnel. Differential Dx:Considerations: Appendicitis, Bowel obstruction, Cholangitis, Cholelithasis, Constipation, Diverticular disease, Esophageal rupture, Esophagitis, Gastritis/PUD, Gastroenteritis, GI hemorrhage, Hernia, Hepatitis, Inflammatory BD, Ischemic bowel, Ovarian cyst/torsion, Pancreatitis, PID, Porphyria, Trauma, intraabdominal, Urinary obstruction, Urinary tract infection, Urolithiasis, Other Departure Time of Disposition: 14:54 Disposition: 01 HOME / SELF CARE / HOMELESS Impression: Primary Impression: Abdominal pain Condition: Stable Discharge Instructions: Abdominal Pain (Nonspecific) Additional Instructions: No clear cause for your abdominal pain was found. Your CT scan shows evidence of a prior gallbladder removal and also a normal appendix. The ultrasound showed good blood flow to both ovaries and no cysts. Use Tylenol if needed for pain. Use ondansetron as needed for nausea. Please follow-up with your primary care provider, and also return if worse. Referrals: NO PRIMARY CARE PROVIDER (PCP) Prescriptions Ondansetron 8mg ODT (Ondansetron Odt) 8 Mg Tab.rapdis 1 TAB PO TID PRN for nausea/vomiting, #10 TAB Prov: STARLA TYSON NP 05/07/25 Education Educated: Patient Educated regarding: diagnosis, treatment, prognosis Signature Scribe Signature: x Attestation: The note accurately reflects work and decisions made by me.Starla Bobo NP 05/07/25 12:37 STARLA TYSON NP May 07, 2025 12:28
[2025-05-07 12:30] LABS: MEAN PLATELET VOLUME 9.7 FL (7.4-10.4); RED CELL DISTRIBUTION WIDTH 13.5 % (11.5-14.5)
[2025-05-07 12:31] LABS: LEUKOCYTE ESTERASE ,URINE NEGATIVE (Neg); NITRITES, URINE NEGATIVE (Neg); OCCULT BLOOD,URINE NEGATIVE (Neg)
[2025-05-07 12:33] LABS: UA COLLECTION TYPE NON-SPECIFIED
[2025-05-07 12:38] LABS: CREATININE 0.52 MG/DL (0.40-0.90); TOTAL CARBON DIOXIDE 27.6 MMOL/L (24-32); eCRCL 130 ML/MIN; eGFR > 90 ML/MIN
[2025-05-07] MEDS: ondansetron/PF 4mg/2ml inj IV ONE (12:53)
[2025-05-07] MEDS: morphine 4 MG/ML inj SYRINge IV ONE (12:53)
[2025-05-07] MEDS: normal saline 1000ml 1,000 ML IV ONE (12:54)
[2025-05-07] MEDS ORDERED: iohexol 300mg/ml 100ml inj. ONE (13:01)
--- NOTE | 2025-05-07 13:36 | RADIOLOGY REPORT ---
EXAM: CT CT ABDOMEN PELVIS W/ IV CONTRAST History: LLQ abd pain COMPARISON: None TECHNIQUE: Multidetector spiral CT of the abdomen and pelvis was performed from lung bases to pubic symphysis. Intravenous contrast was administered during this examination. Portal venous imaging was obtained. Axial, coronal and sagittal multiplanar reformats were performed by the technologist on a separate workstation. Radiation Dose : 1. Abdomen/Pelvis: CTDIvol 24 mGy, DLP 1316 mGy*cm. CONTRAST: Type of contrast: Omnipaque Contrast injected: 100 ml FINDINGS: Lung Bases: No acute or significant lung base finding. Normal heart size. No pleural or pericardial effusion. Liver: The liver is normal in size. No focal lesions. Normal hepatic vascular enhancement. Gallbladder and Biliary Tree: Gallbladder is surgically absent. Spleen: Unremarkable Pancreas: The pancreas is normal in appearance without focal lesions or abnormal enhancement. Adrenal Glands: Unremarkable Kidneys: No hydronephrosis. Bladder: Unremarkable Bowel: The stomach is grossly normal in appearance. Small bowel and colon are normal in caliber and distribution. Normal appendix is visualized in the right lower quadrant without findings of appendicitis. Ascites: Absent Lymphadenopathy: No mesenteric, retroperitoneal or periportal lymphadenopathy. Abdominal Wall and Mesentery: Moderate fat containing ventral hernia in the upper abdomen. Vasculature: The visualized abdominal aorta is normal in size and caliber. Abdominal and pelvic vessels demonstrate normal enhancement. Pelvic Organs: Unremarkable Musculoskeletal: No aggressive focal bony lesions, acute fractures or dislocation. IMPRESSION: 1. No acute abdominal or pelvic finding. Radiation optimization: All CT scans at this facility use at least one of these dose optimization techniques: automated exposure control mA and/or kV adjustment per patient size (includes targeted exams where dose is matched to clinical indication) or iterative reconstruction.
[2025-05-07] MEDS ORDERED: ONDA-245 PO (14:55)
[2025-05-07 15:39] VITALS: BP 124/66; PULSE 64; RESP 18; O2SAT 98
--- NOTE | 2025-05-07 17:46 | RADIOLOGY REPORT ---
PROCEDURE: US ULTRASOUND PELVIS W/ORWO DPLX [facility] Study Date and Requested Time: 05/07/2025 02:32 PM Study Description: US ULTRASOUND PELVIS W/ORWO DPLX History: LLQ abd pain COMPARISON: None TECHNIQUE: Multiple transabdominal and transvaginal high resolution zimmerman-scale images obtained of the uterus and adnexa with color Doppler for evaluation of adnexal blood flow and vascularity as indicated. FINDINGS: Uterus measures 11.1 x 6.3 x 6.4 cm with a 3.3 x 1.4 x 2.8 cm fibroid. Endometrium within normal limits, measuring 0.5 cm in thickness with smooth contour. Cervix within normal limits. Right ovary measures 3 x 2.2 x 3 cm. Left ovary measures 2.3 x 1.8 x 3.4 cm. Normal ovarian color Doppler flow bilaterally. No evidence of cystic or solid ovarian lesions. No evidence of free fluid in the cul-de-sac. IMPRESSION: Fibroid uterus.
== END 2025-05-07 15:41 | disposition home or self-care (01) ==
LOC: ER 11:18
DX: R10.32 Left lower quadrant pain (principal); E11.9 Type 2 diabetes mellitus without complications; Z90.49 Acquired absence of other specified parts of digestive tract; Z79.899 Other long term (current) drug therapy; Z72.89 Other problems related to lifestyle
CPT/HCPCS: 36415; 74177; 76856; 80053; 81003; 81025; 83690; 85025; 93976; 96361; 96374; 96375; 99285; J2270; J2405; J7030; Q9967